=== PATIENT | male | born 1955 | race Caucasian/White ===

== ENCOUNTER 2019-01-30 21:23 | Emergency (ER) | payer MEDICAID ==
[~2019-01-30] VITALS: Ht 175.3 cm; Wt 97.1 kg
[2019-01-30 22:11] VITALS: Ht 175.3 cm; Wt 97.1 kg
[2019-01-31 00:06] VITALS: BP 126/75
== END 2019-01-31 00:26 | disposition home or self-care (01) ==
LOC: ED 21:23
DX: L03.317 Cellulitis of buttock (principal)
CPT/HCPCS: J0696; J1885